=== PATIENT | female | born 1975 | race Caucasian/White ===

== ENCOUNTER 2018-02-23 15:29 | Emergency (ER) | payer BC ==
[~2018-02-23] VITALS: Ht 162.6 cm; Wt 102.1 kg
[~2018-02-23 15:29] MED LIST: ALLEGRA ALLERGY60 MG; AUGMENTIN 875875 MG PO; BENADRYL25 MG PO; BENTYL 20 MG TA20 M1 PO; DECONGESTANT NA15 ML NS; IBUPROFEN 800800 M1 PO; LAMICTAL100 MG; MEDROLDOSEPACK PO; NOHOMEMEDICATIONS; NORCO 5-325 TA1 EACH PO; PERCOCET 5-3251 EACH PO; PERCOCET PO; PHENTERMINE HCL15 MG; POLYMYXIN B/TMP10 ML OP; VISTARIL 25 MG25 M1 PO; ZANTAC 150MG T150 MG PO; ZOFRAN ODT4 MG PO; ZOLOFT50 MG PO; ZPAK PO; ZYRTEC10 MG PO
[2018-02-23] MEDS ORDERED: CLARITIN10 M3 PO (15:43)
[2018-02-23] MEDS ORDERED: VALTREX 500 MG500 M1 PO (15:44)
[2018-02-23] MEDS ORDERED: NAPROSYN500 M1 PO (16:58)
[2018-02-23] MEDS ORDERED: FLEXERIL PO (16:58)
[2018-02-23 17:09] VITALS: BP 135/99
== END 2018-02-23 17:12 | disposition home or self-care (01) ==
LOC: M.ERS 15:29
DX: S39.011A Strain of muscle, fascia and tendon of abdomen, initial encounter (principal); M54.5 Low back pain; Z88.5 Allergy status to narcotic agent; X50.3XXA Overexertion from repetitive movements, initial encounter; Y93.89 Activity, other specified; Y92.89 Other specified places as the place of occurrence of the external cause; Y99.8 Other external cause status

== ENCOUNTER 2018-10-22 21:58 | Emergency (ER) | payer BC ==
[~2018-10-22] VITALS: Ht 162.6 cm; Wt 99.8 kg
[~2018-10-22 21:58] MED LIST changes: +CLARITIN10 M3 PO; +FLEXERIL PO; +NAPROSYN500 M1 PO; +VALTREX 500 MG500 M1 PO
[2018-10-22] MEDS ORDERED: HYDROXYZINE HCL25 M1 (22:10)
[2018-10-22] MEDS ORDERED: XANAX1 MG PO (22:58)
[2018-10-22 23:29] VITALS: BP 172/88
== END 2018-10-22 23:29 | disposition home or self-care (01) ==
LOC: M.ERS 21:58
DX: F41.0 Panic disorder [episodic paroxysmal anxiety] (principal); Z88.5 Allergy status to narcotic agent

== ENCOUNTER → 2018-12-14 | Outpatient (CLI) | payer BC ==
[~2018-12-14] MED LIST changes: +HYDROXYZINE HCL25 M1; +XANAX1 MG PO
== END ==
LOC: M.RAD 14:33
DX: Z12.31 Encounter for screening mammogram for malignant neoplasm of breast (principal)